=== PATIENT | male | born 1945 | race African-American/Black ===

== ENCOUNTER → 2019-11-16 | Outpatient (CLI) | payer MEDICARE, OTHER ==
--- NOTE | 2019-11-16 12:04 | Diagnostic Imaging Report ---
CT of the chest, abdomen, and pelvis, without contrast, 11/16/2019. History: Weight loss. Comparison: 11/15/2014. Technique: Technique: Multidetector CT scanning of the chest, abdomen, and pelvis was performed from the level of the lung apices to the inferior pubic rami after intravenous and oral administration of contrast. Coronal and sagittal multiplanar reformations were obtained. RADIATION DOSE: Total DLP: 669 mGy*cm Dose modulation, iterative reconstruction, and/or weight based adjustment of the mA/kV was utilized to reduce the radiation dose to as low as reasonably achievable. Discussion: CHEST: The heart, aorta, and main pulmonary artery are normal in size. There is calcification of the thoracic aorta and coronary arteries. The thyroid is heterogeneous and enlarged with a 2 cm hypodense nodule on the left. Calcified left hilar lymph nodes are present. There is no evidence of axillary or mediastinal adenopathy. A calcified granuloma is present in the left upper lobe. Scattered linear opacities are present bilaterally. The pleura and lungs are normal in appearance. There is no evidence of consolidation, suspicious nodule, or pleural effusion. ABDOMEN: Cholecystectomy clips are present. Calcified granuloma is present within the spleen. The liver, biliary tree, spleen, pancreas, adrenal glands, and kidneys are unremarkable. The abdominal aorta is mildly calcified but within normal limits for size. Evaluation of the bowel is limited without oral contrast. There is no bowel dilatation. The appendix is visualized and is normal. There is no evidence of adenopathy or free fluid. PELVIS: The prostate appears prominent protruding into the base of the bladder. Bladder is otherwise unremarkable. Fat-containing left inguinal hernia is present. There is no evidence of free fluid or adenopathy. BONES AND SOFT TISSUES: Advanced degenerative changes are present within the lower lumbar spine without evidence of lytic or sclerotic lesion. IMPRESSION: 1. Enlarged heterogeneous thyroid with 2 cm hypodense nodule on the left. Recommend further evaluation with ultrasound. 2. Findings of previous granulomatous disease within the chest and abdomen. No acute pulmonary or abdominal abnormality. 3. Status post cholecystectomy. 4. Mild prostatomegaly. Signed by: Luciano Ng on 11/16/2019 12:01 PM
== END ==
LOC: CT 09:36
PROVIDERS: ATTEND Internal Medicine
DX: R07.9 Chest pain, unspecified (principal); R10.0 Acute abdomen; R63.4 Abnormal weight loss; E04.2 Nontoxic multinodular goiter; N40.0 Benign prostatic hyperplasia without lower urinary tract symptoms
CPT/HCPCS: 71250; 74176

== ENCOUNTER → 2023-01-07 | Outpatient (CLI) | payer MEDICARE | LOC: RAD 10:52 | PROVIDERS: ATTEND Internal Medicine | DX: R60.0 Localized edema (principal) | CPT/HCPCS: 93971 ==